=== PATIENT | female | born 1935 | race Two or more races ===

== ENCOUNTER → 2023-06-23 11:55 | Outpatient (REF) | payer MEDICARE, SELFPAY ==
[2023-06-24 09:23] LABS: Glycohemoglobin (HgbA1c) 5.9 % (4.0-5.6)
== END ==
LOC: OLABN 11:55
PROVIDERS: ATTENDING PHYSICIAN Student in an Organized Health Care Education/Training Program
DX: E11.9 Type 2 diabetes mellitus without complications (principal)
CPT/HCPCS: 36415; 83036

== ENCOUNTER → 2023-09-16 11:58 | Outpatient (REF) | payer MEDICARE, SELFPAY ==
[2023-09-16 13:20] LABS: HDL Cholesterol 41 mg/dl; LDL Cholesterol, Calculated 80 mg/dl; Total Cholesterol 143 mg/dl (50-199); Triglyceride 114 mg/dl (10-149); Very Low Density Lipoprotein 22 mg/dl (0-30)
== END ==
LOC: OLABN 11:58
PROVIDERS: ATTENDING PHYSICIAN Student in an Organized Health Care Education/Training Program
DX: E78.5 Hyperlipidemia, unspecified (principal)
CPT/HCPCS: 80061

== ENCOUNTER → 2024-02-16 10:31 | Outpatient (REF) | payer MEDICARE, SELFPAY ==
[2024-02-16 11:18] LABS: Blood Urea Nitrogen 43 mg/dl (7-17); Calcium 9.6 mg/dl (8.4-10.2); Carbon Dioxide 28 mmol/L (22-30); Chloride 104 mmol/L (98-107); Glucose 83 mg/dl (70-99); Potassium 4.9 mmol/L (3.5-5.1); Sodium 137 mmol/L (135-145); eGFR > 60.00
== END ==
LOC: OLABN 10:31
PROVIDERS: ATTENDING PHYSICIAN Student in an Organized Health Care Education/Training Program
DX: I50.9 Heart failure, unspecified (principal)
CPT/HCPCS: 36415; 80048

== ENCOUNTER → 2024-02-21 09:33 | Outpatient (REF) | payer MEDICARE, SELFPAY ==
[2024-02-21 10:31] LABS: Blood Urea Nitrogen 39 mg/dl (7-17); Calcium 9.1 mg/dl (8.4-10.2); Carbon Dioxide 28 mmol/L (22-30); Chloride 105 mmol/L (98-107); Glucose 80 mg/dl (70-99); Potassium 4.7 mmol/L (3.5-5.1); Sodium 139 mmol/L (135-145); eGFR 53.85
== END ==
LOC: OLABN 09:33
PROVIDERS: ATTENDING PHYSICIAN Student in an Organized Health Care Education/Training Program
DX: I50.9 Heart failure, unspecified (principal)
CPT/HCPCS: 36415; 80048

== ENCOUNTER → 2024-03-15 10:26 | Outpatient (REF) | payer MEDICARE, SELFPAY ==
[2024-03-15 12:46] LABS: Total Cholesterol 125 mg/dl (50-199)
[2024-03-15 13:18] LABS: HDL Cholesterol 39 mg/dl; LDL Cholesterol, Calculated 73 mg/dl; Triglyceride 66 mg/dl (10-149); Very Low Density Lipoprotein 13 mg/dl (0-30)
== END ==
LOC: OLABN 10:26
PROVIDERS: ATTENDING PHYSICIAN Student in an Organized Health Care Education/Training Program
DX: E78.5 Hyperlipidemia, unspecified (principal)
CPT/HCPCS: 36415; 80061

== ENCOUNTER → 2024-03-18 13:58 | Outpatient (REF) | payer MEDICARE, SELFPAY | LOC: OLABN 13:58 | PROVIDERS: ATTENDING PHYSICIAN Student in an Organized Health Care Education/Training Program | DX: R09.89 Other specified symptoms and signs involving the circulatory and respiratory systems (principal) | CPT/HCPCS: 87502 ==